=== PATIENT | female | born 1975 | race Caucasian/White ===

== ENCOUNTER 2017-10-01 16:03 | Emergency (ER) | payer MEDICAID, OTHER ==
[~2017-10-01] VITALS: Ht 170.2 cm; Wt 75.0 kg
[~2017-10-01 16:03] MED LIST: None per pt
[2017-10-01] MEDS ORDERED: SODIUM CHLORIDE 0.9% 1,000ML IVBOLUS ONE ×2 (16:30→20:30)
[2017-10-01] MEDS ORDERED: ACETAMINOPHEN 500 MG TABLET PO ONE (16:30)
[2017-10-01] MEDS ORDERED: SODIUM CHLORIDE FLUSH 10ML SYR IVF ONE (16:30)
[2017-10-01] MEDS ORDERED: ONDANSETRON 2MG/ML, 2ML IVPush ONE (16:30)
[2017-10-01 16:53] LABS: RAPID INFLUENZA A Negative (Negative); RAPID INFLUENZA B Negative (Negative)
[2017-10-01 17:56] LABS: BASOPHILS # (AUTO) 0.01 x10^3/uL (0-0.1); BASOPHILS % (AUTO) 0 % (0-1); EOSINOPHILS % (AUTO) 0 % (1-7); LYMPHOCYTES # (AUTO) 0.81 x10^3/uL (1-3.4); LYMPHOCYTES % (AUTO) 9 % (22-44); MD NO; MEAN CORPUSCULAR HGB CONC 34.4 g/dL (32.4-35.8); MEAN CORPUSCULAR VOLUME 95.8 fL (80-100); MEAN PLATELET VOLUME 7.8 fL (7.4-10.4); MONOCYTES # (AUTO) 0.85 x10^3/uL (0.2-0.8); MONOCYTES % (AUTO) 9 % (2-9); NEUTROPHILS # (AUTO) 7.71 x10^3/uL (1.8-6.8); NEUTROPHILS % (AUTO) 82 % (42-75); PLATELET COUNT 308 x10^3/uL (130-400); RED BLOOD COUNT 4.18 x10^6/uL (3.82-5.3); RED CELL DISTRIBUTION WIDTH 12.6 % (9.6-15.2)
[2017-10-01 18:07] LABS: CHLORIDE 104 mmol/L (98-107)
[2017-10-01 18:08] LABS: ALANINE AMINOTRANSFERASE 32 U/L (12-78); ALBUMIN 2.7 g/dL (3.4-5.0); ANION GAP 7 mmol/L (5-15); CALCIUM 8.3 mg/dL (8.5-10.1); CREATININE 1.01 mg/dL (0.55-1.02)
[2017-10-01 18:09] LABS: ALKALINE PHOSPHATASE 109 U/L (45-117); BILIRUBIN,TOTAL 0.2 mg/dL (0.2-1.0); TOTAL PROTEIN 6.8 g/dL (6.4-8.2)
[2017-10-01] MEDS ORDERED: PHEN1PAC6 PO (18:15)
[2017-10-01] MEDS ORDERED: ONDANSETRON 2MG/ML, 2ML ONE (18:20)
[2017-10-01] MEDS ORDERED: ACETAMINOPHEN 500 MG TABLET ONE (18:20)
[2017-10-01 18:21] LABS: HCG UR SG 1.022 (1.003-1.030)
[2017-10-01 19:13] LABS: MICROSCOPIC INDICATED
[2017-10-01 19:15] LABS: CULTURE INDICATED? YES
[2017-10-01 21:48] VITALS: BP 92/59
== END 2017-10-01 21:55 | disposition home or self-care (01) ==
LOC: ED 19:57
DX: N10 Acute pyelonephritis (principal)
CPT/HCPCS: 36415; 71045; 80053; 81001; 81025; 83605; 85025; 87077; 87086; 87186; 87400; 93005; 96361; 96374; 99285; J2405; J7030

== ENCOUNTER 2018-08-04 18:51 | Inpatient (IN) | payer OTHER ==
[~2018-08-04] VITALS: Ht 170.2 cm; Wt 76.2 kg
[~2018-08-04 18:51] MED LIST changes: +PHEN1PAC6 PO
--- NOTE | 2018-08-04 19:18 | NUR ---
CONCEPCION RN: ASSUMED CARE OF PATIENT. PATIENT REPORTS EPIGASTRIC ABD PAIN. "IT IS BURNING." PT IS ANXIOUS IN ROOM AND MOVING AROUND THE BED. PT SEEN BY KIZZY MATHEW. CALL LIGHT IN PLACE. WILL CONTINUE TO MONITOR.
[2018-08-04] MEDS ORDERED: ONDANSETRON ODT 4 MG ONE (19:28)
[2018-08-04] MEDS ORDERED: MAALOX/HYOSCYAMINE/LIDOCAINE 45 ML BTL ONE (19:28)
[2018-08-04] MEDS ORDERED: LORazepam 1MG TABLET ONE (19:28)
[2018-08-04] MEDS ORDERED: ONDANSETRON ODT 4 MG PO ONE (19:30)
[2018-08-04] MEDS ORDERED: LORazepam 1MG TABLET PO ONE (19:30)
[2018-08-04] MEDS ORDERED: MAALOX/HYOSCYAMINE/LIDOCAINE 45 ML BTL PO ONE (19:30)
--- NOTE | 2018-08-04 19:42 | NUR ---
REPORT GIVEN TO KALEY GRANDE
[2018-08-04 19:50] LABS: BASOPHILS # (AUTO) 0.11 x10^3/uL (0-0.1); BASOPHILS % (AUTO) 1 % (0-1); EOSINOPHILS # (AUTO) 0.22 x10^3/uL (0-0.4); EOSINOPHILS % (AUTO) 2 % (1-7); LYMPHOCYTES # (AUTO) 1.85 x10^3/uL (1-3.4); LYMPHOCYTES % (AUTO) 15 % (22-44); MD NO; MEAN CORPUSCULAR HEMOGLOBIN 33.6 pg (27.0-34.8); MEAN CORPUSCULAR HGB CONC 34.6 g/dL (32.4-35.8); MEAN CORPUSCULAR VOLUME 97.2 fL (80-100); MONOCYTES # (AUTO) 0.56 x10^3/uL (0.2-0.8); MONOCYTES % (AUTO) 5 % (2-9); NEUTROPHILS % (AUTO) 78 % (42-75); PLATELET COUNT 358 x10^3/uL (130-400); RED CELL DISTRIBUTION WIDTH 12.7 % (9.6-15.2)
[2018-08-04 20:05] LABS: ALBUMIN 3.6 g/dL (3.4-5.0); ANION GAP 10 mmol/L (5-15); CALCIUM 8.8 mg/dL (8.5-10.1); CHLORIDE 106 mmol/L (98-107); CREATININE 0.76 mg/dL (0.55-1.02)
[2018-08-04 20:08] LABS: ALANINE AMINOTRANSFERASE 27 U/L (12-78); ALKALINE PHOSPHATASE 120 U/L (45-117); BILIRUBIN,TOTAL 0.4 mg/dL (0.2-1.0); TOTAL PROTEIN 7.6 g/dL (6.4-8.2)
--- NOTE | 2018-08-04 20:11 | NUR ---
PIV STARTED FOR CT. PT STATING SHES STILL IN A LOT OF PAIN. ERIBERTO PATTON NOTIFIED.
[2018-08-04] MEDS ORDERED: OMNIPAQUE 350 MG/ML, 100ML BOTTLE ONE (20:20)
--- NOTE | 2018-08-04 20:30 | NUR ---
pt back from ct
[2018-08-04] MEDS ORDERED: MORPHINE SULFATE 4 MG/ML, 1ML ONE (20:46)
[2018-08-04 20:55] LABS: MICROSCOPIC AUTO
[2018-08-04 20:57] LABS: CULTURE INDICATED? NO
--- NOTE | 2018-08-04 20:58 | NUR ---
PT MEDICATED FOR PAIN PER EMAR
[2018-08-04] MEDS ORDERED: morphine SULFATE 10 MG/ML, 1ML IVPush ONE (21:00)
--- NOTE | 2018-08-04 22:08 | NUR ---
PT BACK FROM US
[2018-08-04] MEDS ORDERED: PIPERACILLIN/TAZO/PMX 3.375GM 50 ML IV ONE (22:30)
[2018-08-04] MEDS ORDERED: PIPERACILLIN/TAZO/PMX 3.375GM 50 ML ONE (22:40)
[2018-08-04] MEDS ORDERED: SODIUM CHLORIDE 0.9% 1,000 ML IV ONE (22:45)
[2018-08-04] MEDS ORDERED: SODIUM CHLORIDE FLUSH 10ML SYR IVF PRN (23:00)
[2018-08-04] MEDS ORDERED: HYDROmorphone 2 MG/ML, 1ML IVPush PRN (23:00)
[2018-08-04] MEDS ORDERED: PROMETHAZINE 25 MG/ML, 1ML IM PRN (23:00)
[2018-08-04] MEDS ORDERED: ONDANSETRON 2MG/ML, 2ML IVPush PRN (23:00)
--- NOTE | 2018-08-04 23:17 | NUR ---
report given to poonam perea
--- NOTE | 2018-08-04 23:17 | NUR ---
pt ambulated to bathroom with steady gait
[2018-08-04 23:30] VITALS: BP 177/83
[2018-08-05] MEDS ORDERED: ONDANSETRON 2MG/ML, 2ML IVPush PRN (00:30)
[2018-08-05] MEDS: LACTATED RINGERS 1,000 ML IV SCH ×2 (00:40→13:50)
[2018-08-05] MEDS: morphine SULFATE 10 MG/ML, 1ML IVPush PRN ×2 (00:47→04:17)
[2018-08-05] MEDS: CEFTRIAXONE PMX 2GM/50ML 50 ML IV SCH ×2 (00:51→13:38)
[2018-08-05 02:00] VITALS: BP 165/100
[2018-08-05] MEDS ORDERED: BUPIVACAINE/PF-EPI 0.5% 1:200K ONE (04:58)
[2018-08-05] MEDS ORDERED: FENTANYL PF 250 MCG/5ML ONE (06:07)
[2018-08-05] MEDS ORDERED: DEXAMETHASONE 4 MG/ML, 1ML ONE (06:12)
[2018-08-05] MEDS ORDERED: PROPOFOL 10 MG/ML, 20ML ONE (06:12)
[2018-08-05] MEDS ORDERED: GLYCOPYRROLATE 0.2MG/1ML, 5ML ONE (06:12)
[2018-08-05] MEDS ORDERED: KETOROLAC 30 MG/1 ML ONE (06:12)
[2018-08-05] MEDS ORDERED: NEOSTIGMINE 1 MG/ML, 10ML ONE (06:12)
[2018-08-05] MEDS ORDERED: ROCURONIUM 10MG/ML,5ML ONE (06:12)
[2018-08-05] MEDS ORDERED: SUCCINYLCHOLINE 20 MG/ML, 10ML ONE (06:12)
[2018-08-05] MEDS ORDERED: BUPIVACAINE/PF-EPI 0.5% 1:200K INFIL ONE (06:36)
[2018-08-05] MEDS ORDERED: METOPROLOL 1 MG/ML, 5ML IV PRN (07:00)
[2018-08-05] MEDS ORDERED: MEPERIDINE/PF 25MG/0.5ML IVPush PRN (07:00)
[2018-08-05] MEDS ORDERED: hydrALAzine 20 MG/ML, 1ML IV PRN (07:00)
[2018-08-05] MEDS ORDERED: LABETALOL 5MG/ML, 20ML IV PRN (07:00)
[2018-08-05] MEDS ORDERED: DIPHENHYDRAMINE 50 MG/ML, 1ML IVPush PRN (07:00)
[2018-08-05] MEDS ORDERED: FENTANYL PF 100 MCG/2ML IV PRN (07:00)
[2018-08-05] MEDS ORDERED: OXYcodone 5 MG/5 ML ORAL.SOL UDC PO PRN (07:00)
[2018-08-05] MEDS ORDERED: HYDROmorphone 2 MG/ML, 1ML IVPush PRN (07:00)
[2018-08-05] MEDS ORDERED: PROCHLORPERAZINE 5 MG/ML, 2ML IV PRN (07:00)
[2018-08-05] MEDS ORDERED: PROMETHAZINE 25 MG/ML, 1ML IV PRN (07:00)
[2018-08-05] MEDS ORDERED: ACETAMINOPHEN 650 MG/20.3 ML UDC ONE (07:05)
[2018-08-05] MEDS ORDERED: OXYcodone 5 MG/5 ML ORAL.SOL UDC ONE (07:06)
[2018-08-05] MEDS ORDERED: FENTANYL PF 100 MCG/2ML ONE (07:06)
[2018-08-05 08:11] VITALS: BP 148/77
[2018-08-05] MEDS ORDERED: KETOROLAC 30 MG/1 ML IV PRN (09:00)
[2018-08-05] MEDS ORDERED: MORPHINE SULFATE 4 MG/ML, 1ML IVPush PRN (09:00)
[2018-08-05] MEDS: HYDROcodone/APAP 5/325 TABLET PO PRN ×2 (10:53→15:09)
[2018-08-05 12:48] VITALS: BP 133/88
== END 2018-08-05 17:52 | disposition home or self-care (01) | DRG 419 ==
LOC: ED 19:14 → EDIP 22:45 → 3NE 23:20
PROVIDERS: ADMIT Surgery; ATTEND Surgery
PROC: 0FT44ZZ Resection of Gallbladder, Percutaneous Endoscopic Approach (ICD-10-PCS; principal; 2018-08-05 06:00)
DX: K80.01 Calculus of gallbladder with acute cholecystitis with obstruction (principal); Z98.51 Tubal ligation status; F17.210 Nicotine dependence, cigarettes, uncomplicated; F15.10 Other stimulant abuse, uncomplicated
CPT/HCPCS: 36415; 74021; 99285; J3490; 74177; 76700; 80053; 81001; 83690; 84703; 85025; 88304; 96374; C1729; G0378; J0696; J1100; J1885; J2405; J2543; J2704; J2710; J3010; Q0162; Q9967; C1760; J0330; J2270; J7120

== ENCOUNTER 2020-07-17 21:53 | Emergency (ER) | payer SELFPAY ==
--- NOTE | 2020-07-17 22:00 | NUR ---
PT SEEN SMOKING IN HALLWAY WHILE AWAITING ROOM. PT ON ANGELA MATHEW. SECUIRTY AT BEDSIDE TO TAKE SMOKING DEVICE AWAY. PT + ETOH.
--- NOTE | 2020-07-17 22:12 | NUR ---
PT FRIEND IN ER YELLING AT RN AND SECURITY. PT APPEARS TO BE INTOXICATED AND TOLD SHE WILL BE NOTIFIED WHEN PT WAS IN A ROOM AND THAT NO VISITORS WILL BE ALLOWED BACK AT THIS TIME.
--- NOTE | 2020-07-17 23:04 | NUR ---
PT WALKED OUT OF ER THROUGH AMBULANCE BAY ENTRANCE. PT CAME BACK INTO ED LOBBY YELLING AT STAFF AND SECURITY. PT ESCORTED OFF PROPERTY.
== END 2020-07-18 23:27 | disposition left against medical advice (07) ==
LOC: ED 23:21
DX: F10.129 Alcohol abuse with intoxication, unspecified (principal); Y90.9 Presence of alcohol in blood, level not specified